=== PATIENT | female | born 1995 | race Two or more races ===

== ENCOUNTER 2017-06-25 17:44 | Emergency (ER) | payer MEDICAID ==
[~2017-06-25] VITALS: Ht 149.9 cm; Wt 63.0 kg
[2017-06-25] MEDS ORDERED: PREDNISONE1 MG PO (17:55)
[2017-06-25] MEDS ORDERED: [UNRECOGNIZED DRUG - REMARK] ORAL (17:55)
[2017-06-25] MEDS ORDERED: PREDNISONE20 M1 PO (17:55)
[2017-06-25 18:51] LABS: APPEARANCE,URINE CLEAR; KETONES,URINE NEGATIVE (NEGATIVE); LEUKOCYTE ESTERASE ,URINE 1+ (NEGATIVE); NITRITE,URINE NEGATIVE (NEGATIVE); PH,URINE 6.5 (4.5-8.0); PROTEIN,URINE NEGATIVE (NEGATIVE); UROBILINOGEN,URINE NORMAL MG/DL (0.0-1.0)
[2017-06-25 18:53] LABS: BASOPHILS % (AUTO) 1.4 % (0.0-2.0); EOSINOPHILS % (AUTO) 0.3 % (0.0-3.0); LYMPHOCYTES % (AUTO) 21.9 % (20.0-45.0); MEAN CORPUSCULAR HEMOGLOBIN 28.7 PG (27.0-31.0); MEAN CORPUSCULAR HGB CONC 30.8 G/DL (32.0-36.0); MEAN CORPUSCULAR VOLUME 93 FL (80-99); MEAN PLATELET VOLUME 9.4 FL (6.5-10.1); MONOCYTES % (AUTO) 5.9 % (1.0-10.0); NEUTROPHILS % (AUTO) 70.6 % (45.0-75.0); PLATELET COUNT 228 K/UL (150-450); RED BLOOD COUNT 4.71 M/UL (4.20-5.40); WHITE BLOOD COUNT 7.1 K/UL (4.8-10.8)
[2017-06-25 18:59] LABS: RBC,URINE 15-20 /HPF (0 - 2); SQUAMOUS EPITHELIAL CELL,UR MODERATE /LPF (NONE/OCC); WBC,URINE 0-2 /HPF (0 - 2)
[2017-06-25 19:00] LABS: BACTERIA,URINE FEW /HPF
[2017-06-25 19:10] LABS: ANION GAP 8 mmol/L (5-15); CALCIUM 8.5 MG/DL (8.5-10.1); CARBON DIOXIDE 24 MMOL/L (21-32); CHLORIDE 102 MMOL/L (98-107); CREATININE 0.6 MG/DL (0.55-1.30); GLOMERULAR FILTRATION RATE > 60 mL/min (>60); POTASSIUM 3.7 MMOL/L (3.5-5.1); SODIUM 134 MMOL/L (136-145)
[2017-06-25 19:15] LABS: ALANINE AMINOTRANSFERASE 30 U/L (12-78); ALBUMIN/GLOBULIN RATIO 0.5 (1.0-2.7); ASPARTATE AMINO TRANSFERASE 27 U/L (15-37); LIPASE 191 U/L (73-393); TOTAL PROTEIN 9.9 G/DL (6.4-8.2)
[2017-06-25] MEDS ORDERED: PRENATAL COMPL1 EAC1 PO (21:08)
[2017-06-25 21:20] VITALS: BP 126/74
[2017-06-25 21:24] VITALS: BP 126/74
--- NOTE | 2017-06-25 21:50 | Emergency Room Report ---
History of Present Illness General Chief Complaint: Abdominal Pain Source: Patient Present Illness HPI The patient is a 22-year-old female presenting for abdominal pain and vaginal bleeding for the past 2 days. Last normal menstrual period was 06/13. She is sexually active with her male partner. Pain is a 6/10 cramping sensation to the mid lower abdomen. No known provoking relieving factors. She states that she gets vaginal spotting after the cramping. She denies any discharge, dysuria, back pain, fever, chills Allergies: Coded Allergies: PENICILLINS (Unverified Allergy, Unknown, 06/25/17) Uncoded Allergies: PENICILLIN (Allergy, Unknown, 06/25/17) Patient History Past Medical History: see triage record Pertinent Family History: none Last Menstrual Period: 06/13/2017 Reviewed Nursing Documentation: PMH: Agreed, PSxH: Agreed Nursing Documentation-PMH Past Medical History: No History, Except For Review of Systems All Other Systems: negative except mentioned in HPI Physical Exam Vital Signs Date Time Temp Pulse Resp B/P (MAP) Pulse Ox O2 Delivery O2 Flow Rate FiO2 06/25/17 17:49 98.2 79 16 118/76 95 Room Air Sp02 EP Interpretation: reviewed, normal General Appearance: no apparent distress, alert, GCS 15, non-toxic Head: normocephalic, atraumatic Eyes: bilateral eye normal inspection, bilateral eye PERRL ENT: hearing grossly normal, normal pharynx, no angioedema, normal voice Neck: full range of motion, supple/symm/no masses Respiratory: chest non-tender, lungs clear, normal breath sounds, speaking full sentences Cardiovascular #1: regular rate, rhythm, no edema Gastrointestinal: normal bowel sounds, soft, non-distended, no guarding, no rebound, tenderness - suprapubic Musculoskeletal: back normal, gait/station normal, normal range of motion, non- tender Neurologic: alert, oriented x3, responsive, motor strength/tone normal, sensory intact, speech normal Psychiatric: judgement/insight normal, memory normal, mood/affect normal, no suicidal/homicidal ideation Skin: normal color, no rash, warm/dry, well hydrated Medical Decision Making PA Attestation Dr. Rausch is my supervising physician. Patient management was discussed with my supervising physician Diagnostic Impression: Primary Impression: Threatened miscarriage ER Course The patient is a 22-year-old female presenting for abdominal pain and vaginal bleeding for the past 2 days. Differential diagnoses considered include but not limited to Early , threatened , ectopic , hemorrhagic cyst, among others PE: Vitals WNL. NAD. Abdomen: Normal appearance. Non distended. No ecchymosis. Normal BS. There is tenderness to palpation over suprapubic region only. No McBurney point tenderness. No guarding. No CVA tenderness CBC and CMP unremarkable Urine positive Beta-hCG 104 Urinalysis shows some blood. No signs of infection Pelvic ultrasound reveals an ovarian cyst. No signs of IUP or ectopic . The patient was told she needs to return in 48 hours for repeat blood work for further evaluation. She was given strict precautions to return earlier Laboratory Tests Test 06/25/17 18:30 White Blood Count 7.1 K/UL (4.8-10.8) Red Blood Count 4.71 M/UL (4.20-5.40) Hemoglobin 13.5 G/DL (12.0-16.0) Hematocrit 43.9 % (37.0-47.0) Mean Corpuscular Volume 93 FL (80-99) Mean Corpuscular Hemoglobin 28.7 PG (27.0-31.0) Mean Corpuscular Hemoglobin Concent 30.8 G/DL (32.0-36.0) L Red Cell Distribution Width 12.0 % (11.6-14.8) Platelet Count 228 K/UL (150-450) Mean Platelet Volume 9.4 FL (6.5-10.1) Neutrophils (%) (Auto) 70.6 % (45.0-75.0) Lymphocytes (%) (Auto) 21.9 % (20.0-45.0) Monocytes (%) (Auto) 5.9 % (1.0-10.0) Eosinophils (%) (Auto) 0.3 % (0.0-3.0) Basophils (%) (Auto) 1.4 % (0.0-2.0) Prothrombin Time 10.0 SEC (9.30-11.50) Prothrombin Time INR 1.0 (0.9-1.1) PTT 27 SEC (23-33) Urine Color Pale yellow Urine Appearance Clear Urine pH 6.5 (4.5-8.0) Urine Specific [place] 1.015 (1.005-1.035) Urine Protein Negative (NEGATIVE) Urine Glucose (UA) Negative (NEGATIVE) Urine Ketones Negative (NEGATIVE) Urine Occult Blood 5+ (NEGATIVE) H Urine Nitrite Negative (NEGATIVE) Urine Bilirubin Negative (NEGATIVE) Urine Urobilinogen Normal MG/DL (0.0-1.0) Urine Leukocyte Esterase 1+ (NEGATIVE) H Urine RBC 15-20 /HPF (0 - 2) H Urine WBC 0-2 /HPF (0 - 2) Urine Squamous Epithelial Cells Moderate /LPF (NONE/OCC) H Urine Bacteria Few /HPF (NONE) Urine HCG, Qualitative Positive Sodium Level 134 MMOL/L (136-145) L Potassium Level 3.7 MMOL/L (3.5-5.1) Chloride Level 102 MMOL/L (98-107) Carbon Dioxide Level 24 MMOL/L (21-32) Anion Gap 8 mmol/L (5-15) Blood Urea Nitrogen 7 mg/dL (7-18) Creatinine 0.6 MG/DL (0.55-1.30) Estimate Glomerular Filtration Rate > 60 mL/min (>60) Glucose Level 103 MG/DL (74-106) Calcium Level 8.5 MG/DL (8.5-10.1) Total Bilirubin 0.1 MG/DL (0.2-1.0) L Aspartate Amino Transferase (AST) 27 U/L (15-37) Alanine Aminotransferase (ALT) 30 U/L (12-78) Alkaline Phosphatase 51 U/L (46-116) Total Protein 9.9 G/DL (6.4-8.2) H Albumin 3.2 G/DL (3.4-5.0) L Globulin 6.7 g/dL Albumin/Globulin Ratio 0.5 (1.0-2.7) L Lipase 191 U/L (73-393) Human Chorionic Gonadotropin, Quant 104 mIU/mL (1-6) H Lab Results Impression CBC and CMP unremarkable Urine positive Beta-hCG 104 Urinalysis shows some blood. No signs of infection CT/MRI/US Diagnostic Results CT/MRI/US Diagnostic Results : Imaging Test Ordered: pelvic US Impression No ectopic or IUP. Ovarian cyst. Otherwise unremarkable per US tech. Please see official report. Last Vital Signs Date Time Temp Pulse Resp B/P (MAP) Pulse Ox O2 Delivery O2 Flow Rate FiO2 06/25/17 21:20 98.2 92 16 126/74 99 Room Air Status: improved Disposition: HOME, SELF-CARE Condition: Improved Scripts Pnv Cmb#21/Iron/Folic Acid ( COMPLETE CAPLET) 1 Each Tablet 1 EACH PO DAILY, #30 TAB Prov: ALMAS EUBANKS 06/25/17 Patient Instructions: Threatened Miscarriage, Abdominal Pain During Additional Instructions: I discussed my findings with the patient. All questions and concerns have been answered. Treatment and medication compliance have been addressed. Return to ED if symptoms worsen, new symptoms arise, or if needed for any reason. Patient verbalized understanding of discharge instructions. The patient was told she needs to either return here or another facility to have blood work redrawn in 48 hours in order to evaluate possibility of ectopic . She agrees Return to the emergency department if you experience continued or worsening abdominal pain, vaginal bleeding, fever, chills, back pain, or for any other reason ALMAS EUBANKS Jun 25, 2017 21:50
--- NOTE | 2017-06-26 14:14 | Diagnostic Imaging Report ---
Indication: Pain. Positive test Technique: Transabdominal and endovaginal pelvic ultrasound was performed. Findings: The uterus measures 6.7 x 4.3 x 4.5 cm. Endometrial echocomplex measures approximately 4.8 mm (on transabdominal scan, measurement was unobtainable on transvaginal scan). There is no intrauterine gestational sac. Bilateral ovaries are noted, with simple appearing follicles and a simple cyst on the right measuring 2.1 x 1.4 cm. Color Doppler flow to the bilateral ovaries is documented. There is no evidence to suggest ovarian torsion at this time. No free fluid seen. Impression: No intrauterine gestational sac identified. This may be related to very early . Ectopic is thought less likely especially given near normal-appearing adnexa and lack of free fluid, but not entirely excluded. Recommend follow-up with serial hCG and/or ultrasound until diagnosis. No evidence to suggest ovarian torsion at this time. Lona RIVAS, et al. Diagnostic Criteria for Nonviable Early in the First Trimester. N Engl J Med. 2013 Apr 20;369(15):1443-51.
[2017-06-26] MEDS ORDERED: IBUPROFEN600 MG ORAL (20:28)
[2017-06-26] MEDS ORDERED: NITROFURANTOIN100 M2 ORAL (20:28)
== END 2017-06-25 21:24 | disposition home or self-care (01) ==
LOC: EMR 18:04
DX: N93.9 Abnormal uterine and vaginal bleeding, unspecified (principal)
CPT/HCPCS: 36415; 76856; 80053; 81003; 81025; 83690; 84702; 85025; 85610; 85730; 96374; 99284

== ENCOUNTER 2017-06-26 18:58 | Emergency (ER) | payer MEDICAID ==
[~2017-06-26] VITALS: Ht 149.9 cm; Wt 63.0 kg
[~2017-06-26 18:58] MED LIST: PREDNISONE1 MG PO; PREDNISONE20 M1 PO; PRENATAL COMPL1 EAC1 PO; [UNRECOGNIZED DRUG - REMARK] ORAL
[2017-06-26 19:51] LABS: APPEARANCE,URINE SLIGHTLY CLOUDY; KETONES,URINE NEGATIVE (NEGATIVE); LEUKOCYTE ESTERASE ,URINE 2+ (NEGATIVE); NITRITE,URINE NEGATIVE (NEGATIVE); PH,URINE 6 (4.5-8.0); PROTEIN,URINE 1+ (NEGATIVE); UROBILINOGEN,URINE NORMAL MG/DL (0.0-1.0)
--- NOTE | 2017-06-26 19:51 | Emergency Room Report ---
History of Present Illness General Chief Complaint: Complications Source: Patient Present Illness HPI 22-year-old female , LMP 6 weeks ago comes back to the ER for continued painful vaginal bleeding beta quant 105 yesterday, 06/25 Used 5 pads today Is cramping in nature Was here last night for similar, ultrasound did not show IUP H&H stable Was told to come back in 48 hours over patient states that taking Tylenol home not helping States June 16 had some spotting but was likely not usual menstrual period Allergies: Coded Allergies: PENICILLINS (Unverified Allergy, Unknown, 06/25/17) Uncoded Allergies: PENICILLIN (Allergy, Unknown, 06/25/17) Patient History Past Medical History: none Past Surgical History: none Pertinent Family History: none Last Menstrual Period: 06/13/2017 Now: Yes : 1 Para: 0 Immunizations: UTD Reviewed Nursing Documentation: PMH: Agreed, PSxH: Agreed Nursing Documentation-PMH Past Medical History: No History, Except For Review of Systems All Other Systems: negative except mentioned in HPI Physical Exam Vital Signs Date Time Temp Pulse Resp B/P (MAP) Pulse Ox O2 Delivery O2 Flow Rate FiO2 06/26/17 19:01 98.1 91 16 122/86 96 Room Air Sp02 EP Interpretation: reviewed, normal General Appearance: normal inspection, well appearing, no apparent distress, alert, GCS 15, non-toxic Head: normocephalic, atraumatic Eyes: bilateral eye PERRL, bilateral eye EOMI ENT: normal ENT inspection, hearing grossly normal, normal pharynx, no angioedema, normal voice, TMs + canals normal, uvula midline, moist mucus membranes Neck: normal inspection, full range of motion, supple, thyroid normal, no meningismus, no bony tend Respiratory: normal inspection, lungs clear, normal breath sounds, no rhonchi, no respiratory distress, no retraction, no accessory muscle use, no wheezing, speaking full sentences Cardiovascular #1: regular rate, rhythm, no edema, no JVD, normal capillary refill Gastrointestinal: normal inspection, normal bowel sounds, non tender, soft, no mass, no peritonitis, non-distended, no guarding, no hernia, no pulsatile mass Genitourinary: no CVA tenderness Musculoskeletal: normal inspection, back normal, normal range of motion, no calf tenderness, pelvis stable, Adriane's Sign negative Neurologic: normal inspection, alert, oriented x3, responsive, barn worker III-XII nml as tested, motor strength/tone normal, cerebellar normal, normal gait, speech normal Psychiatric: normal inspection, judgement/insight normal, mood/affect normal, no suicidal/homicidal ideation, no delusions Skin: normal inspection, normal color, no rash Lymphatic: normal inspection, no adenopathy Medical Decision Making Diagnostic Impression: Primary Impression: Spontaneous ER Course Patient with threatened miscarriage Beta Quant down trending to 28 Urine actually negative today unlikely a viable at this time was given IV Toradol for cramping pain Urine today has some bacteria, and antibiotics Recommending NSAIDs as needed for pain ER course: Patient has remained stable during ED stay. Patient is to be discharged to home. Prescriptions given are motrin, macrobid Patient is instructed to follow up with their primary care doctor within 5 days. Strict return precautions discussed with patient such as fever, chills, worsening/severe pain, nausea, vomiting, which may indicate severe illness. Patient verbalizes understanding and agrees with plan. Please note that this Emergency Department Report was dictated using [employer] technology software, occasionally this can lead to erroneous entry secondary to interpretation by the dictation equipment Last Vital Signs Date Time Temp Pulse Resp B/P (MAP) Pulse Ox O2 Delivery O2 Flow Rate FiO2 06/26/17 19:01 98.1 91 16 122/86 96 Room Air Status: improved Disposition: HOME, SELF-CARE Referrals: NON PHYSICIAN (PCP) MAITE RIVERA M.D. Jun 26, 2017 19:51
[2017-06-26 20:09] LABS: BACTERIA,URINE FEW /HPF; RBC,URINE TNTC /HPF (0 - 2); SQUAMOUS EPITHELIAL CELL,UR FEW /LPF (NONE/OCC)
[2017-06-26 20:14] LABS: BASOPHILS % (AUTO) 0.8 % (0.0-2.0); LYMPHOCYTES % (AUTO) 15.5 % (20.0-45.0); MEAN CORPUSCULAR HEMOGLOBIN 28.9 PG (27.0-31.0); MEAN CORPUSCULAR HGB CONC 31.1 G/DL (32.0-36.0); MEAN CORPUSCULAR VOLUME 93 FL (80-99); MEAN PLATELET VOLUME 9.6 FL (6.5-10.1); MONOCYTES % (AUTO) 5.8 % (1.0-10.0); NEUTROPHILS % (AUTO) 77.9 % (45.0-75.0); PLATELET COUNT 244 K/UL (150-450); RED BLOOD COUNT 4.82 M/UL (4.20-5.40); RED CELL DISTRIBUTION WIDTH 11.7 % (11.6-14.8); WHITE BLOOD COUNT 8.7 K/UL (4.8-10.8)
[2017-06-26] MEDS ORDERED: IBUPROFEN600 MG ORAL (20:28)
[2017-06-26] MEDS ORDERED: NITROFURANTOIN100 M2 ORAL (20:28)
[2017-06-26] MEDS ORDERED: Ketorolac 30mg Inj IV ONE (20:30)
[2017-06-26 20:37] VITALS: BP 127/89
[2017-06-26 20:38] VITALS: BP 122/86
== END 2017-06-26 20:38 | disposition home or self-care (01) ==
LOC: EMR 19:32
DX: O03.9 Complete or unspecified spontaneous abortion without complication (principal); Z88.0 Allergy status to penicillin
CPT/HCPCS: 36415; 81003; 81025; 84702; 85025; 96374; 99284; J1885

== ENCOUNTER 2017-07-15 04:39 | Emergency (ER) | payer MEDICAID ==
[~2017-07-15] VITALS: Ht 152.4 cm; Wt 59.9 kg
[~2017-07-15 04:39] MED LIST changes: +IBUPROFEN600 MG ORAL; +NITROFURANTOIN100 M2 ORAL
[2017-07-15 04:48] VITALS: BP 133/68
[2017-07-15 05:13] LABS: BILIRUBIN, URINE NEGATIVE (NEGATIVE); COLOR,URINE PALE YELLOW; GLUCOSE, URINE (UA) NEGATIVE (NEGATIVE); KETONES,URINE 1+ (NEGATIVE); LEUKOCYTE ESTERASE ,URINE 3+ (NEGATIVE); NITRITE,URINE NEGATIVE (NEGATIVE); PH,URINE 5 (4.5-8.0); PROTEIN,URINE 2+ (NEGATIVE); UROBILINOGEN,URINE NORMAL MG/DL (0.0-1.0)
[2017-07-15] MEDS ORDERED: Solu-MEDROL 125mg Inj IVP ONE (05:15)
[2017-07-15] MEDS ORDERED: Acetaminophen 500mg (ES) tab ORAL ONE (05:15)
[2017-07-15] MEDS ORDERED: Ketorolac 30mg Inj IV ONE (05:15)
[2017-07-15 05:27] LABS: APPEARANCE,URINE SLIGHTLY CLOUDY
[2017-07-15 05:55] LABS: HEMATOCRIT 42.9 % (37.0-47.0); HEMOGLOBIN 14.3 G/DL (12.0-16.0); MEAN CORPUSCULAR VOLUME 92 FL (80-99); PLATELET COUNT 222 K/UL (150-450); RED BLOOD COUNT 4.64 M/UL (4.20-5.40); RED CELL DISTRIBUTION WIDTH 11.5 % (11.6-14.8); WHITE BLOOD COUNT 12.7 K/UL (4.8-10.8)
[2017-07-15 06:07] LABS: ANION GAP 9 mmol/L (5-15); BLOOD UREA NITROGEN 16 mg/dL (7-18); CALCIUM 7.4 MG/DL (8.5-10.1); CARBON DIOXIDE 26 MMOL/L (21-32); CHLORIDE 101 MMOL/L (98-107); CREATININE 0.8 MG/DL (0.55-1.30); POTASSIUM 3.1 MMOL/L (3.5-5.1); SODIUM 136 MMOL/L (136-145)
[2017-07-15] MEDS ORDERED: IBUPROFEN600 MG ORAL (06:20)
[2017-07-15] MEDS ORDERED: TAMIFLU75 MG ORAL (06:20)
--- NOTE | 2017-07-15 06:20 | Emergency Room Report ---
History of Present Illness General Chief Complaint: Vomiting Source: Patient Present Illness [facility] This is a 22-year-old female with myasthenia gravis. She present with chief complaint of fever, chills, body pain and nausea and vomiting. Pain is 10 out of 10. Onset this morning. No diarrhea. No sick contact. Allergies: Coded Allergies: PENICILLINS (Unverified Allergy, Unknown, 06/25/17) Uncoded Allergies: PENICILLIN (Allergy, Unknown, 06/25/17) Patient History Past Medical History: see triage record, old chart reviewed Past Surgical History: other Pertinent Family History: none Social History: Denies: smoking Last Menstrual Period: unk Now: No Immunizations: other Reviewed Nursing Documentation: PMH: Agreed, PSxH: Agreed Review of Systems Constitutional: Reports: fever Eye: Denies: eye pain, blurred vision ENT: Denies: ear pain, nose congestion, throat swelling Respiratory: Denies: cough, shortness of breath Cardiovascular: Denies: chest pain, palpitations Gastrointestinal: Reports: nausea, vomiting, Denies: abdominal pain, diarrhea Musculoskeletal: Reports: back pain, Denies: joint pain Skin: Denies: rash Neurological: Denies: headache, numbness Endocrine: Denies: increased thirst, increased urine Hematologic/Lymphatic: Denies: easy bruising All Other Systems: negative except mentioned in HPI Physical Exam Vital Signs Date Time Temp Pulse Resp B/P (MAP) Pulse Ox O2 Delivery O2 Flow Rate FiO2 07/15/17 04:42 101.7 160 20 133/68 98 07/15/17 04:48 Room Air vitals with fever Sp02 EP Interpretation: reviewed, normal General Appearance: well appearing, no apparent distress, alert Head: normocephalic, atraumatic Eyes: bilateral eye PERRL, bilateral eye EOMI ENT: hearing grossly normal, normal pharynx Neck: full range of motion, supple, no meningismus Respiratory: chest non-tender, lungs clear, normal breath sounds Cardiovascular #1: regular rate, rhythm, no murmur, tachycardia Gastrointestinal: normal bowel sounds, non tender, no mass, no organomegaly, no bruit, non-distended Musculoskeletal: back normal, gait/station normal, normal range of motion Psychiatric: mood/affect normal Skin: warm/dry Medical Decision Making Diagnostic Impression: Primary Impression: Influenza ER Course Patient with influenza clinically. She fell better after IV fluid Tylenol and Motrin. Heart rate down to the 120s. Urine is unremarkable. She is no longer . She no longer having any bleeding or discharge. No evidence of sepsis, meningitis or other bacterial infection. We'll discharge home. Last Vital Signs Date Time Temp Pulse Resp B/P (MAP) Pulse Ox O2 Delivery O2 Flow Rate FiO2 07/15/17 04:48 101.7 130 20 133/68 98 Room Air Status: improved Disposition: HOME, SELF-CARE Condition: Stable Scripts Oseltamivir Phosphate (Tamiflu) 75 Mg Capsule 75 MG ORAL TWICE A DAY, #10 CAP Prov: FREDERICK RAMOS M.D. 07/15/17 Ibuprofen* (MOTRIN*) 600 Mg Tablet 600 MG ORAL Q6H Y for For Pain, #30 TAB Prov: FREDERICK RAMOS M.D. 07/15/17 Referrals: NON PHYSICIAN (PCP) Additional Instructions: Followup with your Dr. in 5-7 days. Return if symptom worsen. Rest. Increase fluid. FREDERICK RAMOS M.D. Jul 15, 2017 06:20
[2017-07-15 06:30] VITALS: BP 125/70
== END 2017-07-15 06:30 | disposition home or self-care (01) ==
LOC: EMR 06:09
DX: J11.1 Influenza due to unidentified influenza virus with other respiratory manifestations (principal); G70.00 Myasthenia gravis without (acute) exacerbation; Z88.0 Allergy status to penicillin
CPT/HCPCS: 36415; 80048; 81001; 81025; 85025; 87086; 87181; 96361; 96374; 96375; 99284; J1885; J2405; J2930